=== PATIENT | female | born 1960 | race Caucasian/White ===

== ENCOUNTER 2020-06-12 21:57 | Emergency (ER) | payer OTHER ==
[2020-06-12 22:08] VITALS: BP 150/65; PULSE 89; TEMP 98.6; BMI 30.9
[2020-06-12] MEDS ORDERED: DIPHTH,PERTUSS(ACELL),TET 0.5 ML DISP.SYRIN IM ONE ×2 (22:30→22:37)
--- NOTE | 2020-06-12 22:47 | PDOC ---
History of Present Illness - General Chief Complaint: Injury Stated Complaint: LACERATION Time Seen by Provider: 06/12/20 22:24 History Source: Patient Exam Limitations: No Limitations Past History - Travel History Traveled outside of the country in the last 30 days: No Close contact w/someone who was outside of country & ill: No - Medical History Allergies/Adverse Reactions: Allergies Allergy/AdvReac Type Severity Reaction Status Date / Time No Known Allergies Allergy Verified 09/16/17 11:42 Home Medications: Ambulatory Orders Lisinopril [Prinivil] 10 mg PO DAILY 04/18/13 Sertraline HCl [Zoloft -] 100 mg PO DAILY 04/18/13 Acetaminophen [Tylenol .Regular Strength -] 650 mg PO Q6H PRN #0 tablet 04/19/13 Albuterol Sulfate Inhaler - [Ventolin HFA Inhaler -] 2 inh PO Q6H 04/25/15 Atorvastatin Ca [Lipitor] 20 mg PO HS 04/25/15 Bupropion HCl [Wellbutrin -] 200 mg PO BID 04/25/15 Colchicine [Colcrys] 0.6 mg PO DAILY 04/25/15 Fluticasone Propionate [Flovent Hfa] 110 mcg IH BID 04/25/15 Indomethacin 25 mg PO TID 04/25/15 Montelukast Na [Singulair -] 10 mg PO HS 04/25/15 Oxycodone HCl 5 mg PO Q6H PRN 04/25/15 Cyclobenzaprine HCl [Flexeril] 5 mg PO TID #9 tablet 08/31/15 Ibuprofen [Motrin -] 800 mg PO TID #30 tablet 08/31/15 EPINEPHrine (EPI-PEN 0.3MG) [Epipen 0.3MG -] 04/01/16 Gabapentin 100 mg PO DAILY 04/01/16 Gabapentin 300 mg PO DAILY 04/01/16 Sertraline HCl 50 mg PO DAILY 04/01/16 Venlafaxine HCl ER [Effexor Xr -] 75 mg PO DAILY 04/01/16 Amox-Tr/K Cl [Augmentin - 875Mg Tablet] 1 tab PO BID #20 tablet 06/12/20 Cardiac Disorders: Yes (heart murmur,tricuspid insufficiency) CVA: No COPD: No CHF: No GI Disorders: Yes (GASTRITIS,BILE REFLUX) HTN: Yes Hypercholesterolemia: No Psychiatric Problems: Yes (depression) Seizures: No - Surgical History Abdominal Surgery: Yes (TUMMARY TUCK IN [place]) Orthopedic Surgery: Yes (BACK/NECK SURGERY) - Psycho-Social/Smoking History Smoking Status: No Smoking History: Never smoked Have you smoked in the past 12 months: No Number of Cigarettes Smoked Daily: 0 - Substance Abuse Hx (Audit-C & DAST Scrn) How often the patient has a drink containing alcohol: Never Score: In Men: 4 or > Positive; In Women: 3 or > Positive: 0 Screen Result (Pos requires Nsg. Audit-10AR): Negative Review of Systems - Review of Systems Able to Perform ROS?: Yes Comments:: 06/12/20 23:02 CONSTITUTIONAL: Absent: fever, chills, diaphoresis, generalized weakness, malaise, loss of appetite MUSCULOSKELETAL: Present: Right foot pain Absent: myalgia, arthralgia, joint swelling SKIN: Present: Scrape to bottom of right foot. Absent: rash, itching, pallor HEMATOLOGIC/IMMUNOLOGIC: Absent: easy bleeding, easy bruising, lymphadenopathy, frequent infections ENDOCRINE: Absent: unexplained weight gain, unexplained weight loss, heat intolerance, cold intolerance NEUROLOGIC: Absent: headache, focal weakness or paresthesias, dizziness, unsteady gait, seizure, mental status changes, bladder or bowel incontinence PSYCHIATRIC: Absent: anxiety, depression, suicidal or homicidal ideation, hallucinations. Is the patient limited [place] proficient: No *Physical Exam - Vital Signs Last Vital Signs Temp Pulse Resp BP Pulse Ox 98.6 F 89 19 150/65 97 06/12/20 22:00 06/12/20 22:00 06/12/20 22:00 06/12/20 22:00 06/12/20 22:00 - Physical Exam 06/12/20 23:03 GENERAL: The patient is awake, alert, and fully oriented, in no acute distress. HEAD: Normal with no signs of trauma. EYES: Pupils equal, round and reactive to light, extraocular movements intact, sclera anicteric, conjunctiva clear. EXTREMITIES: Normal range of motion, no edema. NEUROLOGICAL: Normal speech, normal gait. PSYCH: Normal mood, normal affect. SKIN: Right foot with 2 cm abrasion to the right plantar surface along the arch. No active bleeding. Warm, Dry, normal turgor, no rashes or lesions noted. ED Treatment Course - RADIOLOGY Radiology Studies Ordered: Category Date Time Status FOOT-RIGHT [RAD] Stat Radiology 06/12/20 22:29 Ordered - Medications Given in the ED: ED Medications Discontinued Medications Generic Name Dose Route Start Last Admin Trade Name Cliff PRN Reason Stop Dose Admin Diphtheria/Tetanus/Acell Pertussis 0.5 ml 06/12/20 22:30 06/12/20 22:46 Boostrix - IM 06/12/20 22:31 0.5 ml .ONCE ONE Administration Medical Decision Making - Medical Decision Making 06/12/20 23:03 Patient is a 59-year-old female past medical history of diabetes, presents to the ER today for right foot injury. She states that she was moving when she slipped and cut her foot on a piece of metal. She states that the metal went through her sneaker. She does not remember the date of her last tetanus shot. Denies numbness and tingling weakness the affected extremity. A/P: Abrasion On exam there is a 2 cm linear abrasion to the right plantar surface along the arch. No deep laceration or active bleeding. Wound was cleaned, skin debrided, and dressing placed. X-ray shows no evidence of fractures. Tetanus shot updated today as metal potentially cause the injury. We will discharge patient home on Augmentin to prevent infection given she has history of diabetes Discharge home with primary care follow-up. I discussed the physical exam findings, ancillary test results and final diagnoses with the patient. I answered all of the patient's questions. The patient was satisfied with the care received and felt comfortable with the discharge plan and treatment plan. The Patient agrees to follow up with the primary care physician/specialist within 24-72 hours. Return precautions were given. Discharge - Discharge Information Problems reviewed: Yes Clinical Impression/Diagnosis: Abrasion Condition: Stable Disposition: HOME - Admission No - Follow up/Referral Referrals: Olinda Galvan [Primary Care Provider] - - Patient Discharge Instructions Patient Printed Discharge Instructions: DI for Abrasion Additional Instructions: You were seen for the cut on the bottom of your foot or abrasion. Your x-ray did not show any fractures or broken bones in the right foot today. Your tetanus shot was updated. Please keep the area clean and dry. Leave the dressing on for 24 hours. Then you may leave it open to air. If you are going out you may cover the wound to prevent infection. Please take the Augmentin twice a day for 10 days to again prevent infection. You may take Tylenol as needed for pain. Follow the dosing instructions on the bottle. Follow-up with your primary care doctor this week. Return to the ER for redness around the area, purulent discharge including pus, increased pain or tenderness, or if you have any changes in your symptoms. - Post Discharge Activity
== END 2020-06-12 23:10 | disposition home or self-care (01) ==
LOC: JER 21:57 → JERFT 21:57
PROC: 3E0234Z Introduction of Serum, Toxoid and Vaccine into Muscle, Percutaneous Approach (ICD-10-PCS; principal; 2020-06-12)
DX: S90.811A Abrasion, right foot, initial encounter (principal)
CPT/HCPCS: 73630-TC-RT-FY; 90715; 99284-25